=== PATIENT | male | born 1970 | race American Indian/Alaskan Native ===

== ENCOUNTER 2017-04-29 19:02 | Emergency (ER) | payer BC ==
[2017-04-29 19:19] VITALS: BP 147/88
--- NOTE | 2017-04-29 19:46 | Emergency Department Report ---
ED General Adult HPI - General Chief complaint: Headache Stated complaint: BODY PAIN Time Seen by Provider: 04/29/17 19:35 Source: patient, RN notes reviewed Mode of arrival: Ambulatory Limitations: No Limitations - History of Present Illness Initial comments: This is a 47-year-old male who was previously unknown to this provider. The patient presents to the ER with multiple complaints. The patient's first complaint is left-sided facial pain, left sided otalgia, and headache. It has been going on for 4 days. The headache is not sudden or thunderclap in nature, it does not reach maximal intensity within an hour, and it is not the worse headache of his life. The headache increases with palpation of the left maxillary sinus. Patient also complains of nontraumatic right lower back pain. The pain increases with palpation and decreases with rest. It does not radiate anywhere. The patient also complains of nontraumatic right hamstring pain which feels crampy in nature. It does not radiate anywhere, and has no exacerbating or relieving factors, with the exception of palpation or range of motion, which increased the pain. The patient also complains of resolved bloody nose. This has since resolved. The patient does admit to consuming cocaine last week. He has no chest pain, shortness of breath, abdominal pain, testicular pain, urinary symptoms, bladder or bowel retention or incontinence. -: Gradual Location: head, face, back, left, lower extremity Radiation: non-radiation Severity scale (0 -10): 7 Quality: aching Consistency: intermittent Improves with: other Worsens with: other Associated Symptoms: headaches. denies: confusion, chest pain, cough, diaphoresis, fever/chills, loss of appetite, malaise, nausea/vomiting, rash, seizure, shortness of breath, syncope, weakness - Related Data Previous Rx's Medication Instructions Recorded Last Taken Type Acetaminophen [Tylenol Arthritis] 650 mg PO Q6HR PRN #30 tablet.er 04/29/17 Unknown Rx Amoxicillin [Trimox CAP] 500 mg PO Q8H #15 capsule 04/29/17 Unknown Rx Fluticasone [Flonase] 1 spray NS QDAY #1 bottle 04/29/17 Unknown Rx Ibuprofen [Motrin] 600 mg PO Q8H PRN #30 tablet 04/29/17 Unknown Rx Allergies Allergy/AdvReac Type Severity Reaction Status Date / Time morphine Allergy Swelling Verified 04/29/17 19:22 ED Review of Systems ROS: Stated complaint: BODY PAIN Other details as noted in HPI Comment: All other systems reviewed and negative (as per history of present illness) ED Past Medical Hx - Past Medical History Previous Medical History?: No - Surgical History Past Surgical History?: Yes Additional Surgical History: Apendectomy 1996 - Social History Smoking Status: Current Every Day Smoker Substance Use Type: None - Medications Home Medications: Home Medications Medication Instructions Recorded Confirmed Last Taken Type Acetaminophen [Tylenol Arthritis] 650 mg PO Q6HR PRN #30 tablet.er 04/29/17 Unknown Rx Amoxicillin [Trimox CAP] 500 mg PO Q8H #15 capsule 04/29/17 Unknown Rx Fluticasone [Flonase] 1 spray NS QDAY #1 bottle 04/29/17 Unknown Rx Ibuprofen [Motrin] 600 mg PO Q8H PRN #30 tablet 04/29/17 Unknown Rx ED Physical Exam - General Limitations: No Limitations General appearance: alert, in no apparent distress - Head Head exam: Present: atraumatic, normocephalic - Eye Eye exam: Present: normal appearance, PERRL, EOMI. Absent: nystagmus - ENT ENT exam: Present: normal exam, normal orophraynx, mucous membranes moist, normal external ear exam, other (there is left maxillary sinus tenderness. There is dried blood in the left nostril. There is no septal necrosis. Numerous broken teeth, including teeth #10, 11). Absent: TM's normal bilaterally (there is left sided tympanic membrane erythema.) - Neck Neck exam: Present: normal inspection, full ROM. Absent: tenderness, meningismus - Respiratory Respiratory exam: Present: normal lung sounds bilaterally. Absent: respiratory distress, chest wall tenderness - Cardiovascular Cardiovascular Exam: Present: regular rate, normal rhythm, normal heart sounds. Absent: systolic murmur, diastolic murmur, rubs, gallop - GI/Abdominal GI/Abdominal exam: Present: soft, normal bowel sounds. Absent: distended, tenderness, guarding, rebound, rigid, pulsatile mass - Rectal Rectal exam: Present: deferred - Extremities Exam Extremities exam: Present: normal inspection, full ROM, normal capillary refill , other (the compartments are soft. The hamstring is nontender. There is no redness, pus or streaking or crepitus. There is full active and passive range of motion of the bilateral upper and lower extremities, 2+ pulses noted in the bilateral upper and lower extremities). Absent: pedal edema, joint swelling, calf tenderness - Back Exam Back exam: Present: normal inspection, full ROM, paraspinal tenderness. Absent : vertebral tenderness - Neurological Exam Neurological exam: Present: alert, oriented X3, CN II-XII intact, normal gait, other (Extraocular movements intact. Tongue midline. No facial droop. Facial sensation intact to light touch in the V1, V2, V3 distribution bilaterally. 5 and 5 strength in 4 extremities.. Sensation is intact to light touch in 4 extremities.). Absent: motor sensory deficit - Psychiatric Psychiatric exam: Present: normal affect, normal mood - Skin Skin exam: Present: warm, dry, intact, normal color. Absent: rash ED Course Vital Signs 04/29/17 19:18 Temperature 98.2 F Pulse Rate 98 H Respiratory 18 Rate Blood Pressure 147/88 [Right] O2 Sat by Pulse 97 Oximetry ED Medical Decision Making - Lab Data Vital Signs 04/29/17 19:18 Temperature 98.2 F Pulse Rate 98 H Respiratory 18 Rate Blood Pressure 147/88 [Right] O2 Sat by Pulse 97 Oximetry - Medical Decision Making Differential diagnosis, including but not limited to: Muscular back pain, muscular leg pain, left-sided maxillary sinusitis, left-sided otitis media Assessment and plan: 37-year-old male with probable left-sided maxillary sinusitis, left-sided otitis media, reproducible right-sided paraspinal back pain, unremarkable leg pain, resolved nasal bleeding. Patient is afebrile with reassuring vital signs, clinically sober, has a GCS of 15, walks with a steady gait, no indication of epidural compression syndrome at this time. Patient is to follow up with outpatient dental. He is advised to discontinue cocaine use. He will be discharged home with nonnarcotic pain medication, amoxicillin, instructions to follow up with outpatient primary care. Headache by history is not historically consistent with stroke, hemorrhage, subarachnoid bleed. Critical care attestation.: If time is entered above; I have spent that time in minutes in the direct care of this critically ill patient, excluding procedure time. ED Disposition Clinical Impression: Otalgia, Lower back pain Disposition: TO HOME OR SELFCARE Is pt being admited?: No Does the pt Need Aspirin: No Condition: Good Instructions: Sinusitis (ED) Additional Instructions: Take medications as directed. Discontinue cocaine consumption. Follow-up with the primary care doctor within the next month. Follow-up with her private dentist within the next week. Return to the ER right away with new pain, worsened pain, migration of pain, weakness, numbness, confusion, unsteady gait, inability to tolerate liquid feeds. Referrals: CASE BARRAZA MD [Staff Physician] - 3-5 Days [facility] [Outside] - 3-5 Days
[2017-04-29] MEDS ORDERED: MOTRIN PO ONE (19:51)
[2017-04-29] MEDS ORDERED: TYLENOL PO ONE (19:51)
== END 2017-04-29 20:08 | disposition home or self-care (01) ==
LOC: ED 19:02
DX: M54.5 Low back pain (principal); R51 Headache; H92.02 Otalgia, left ear; F17.200 Nicotine dependence, unspecified, uncomplicated; Z88.6 Allergy status to analgesic agent
CPT/HCPCS: 99282